=== PATIENT | female | born 1980 | race Native Hawaiian/Other Pacific Islander ===

== ENCOUNTER 2019-11-08 13:55 | Observation (INO) | payer OTHER ==
[2019-11-08] MEDS ORDERED: LACTATED RINGERS 1,000 ML ONE (14:32)
[2019-11-08] MEDS: LACTATED RINGERS 1,000 ML IV SCH ×2 (15:36→19:42)
[2019-11-08] MEDS ORDERED: OXYTOCIN 20 UNIT/1000ML DRIP 0 MILLIUNITS/0 ML BAG IV ONE ×2 (18:02→21:09)
[2019-11-08] MEDS ORDERED: MINERAL OIL 30 ML ORAL LIQD ONE (18:02)
[2019-11-08] MEDS ORDERED: OXYTOCIN DRIP 0 MILLIUNITS/0 ML BAG IV ONE (21:09)
[2019-11-09] MEDS: LACTATED RINGERS 1,000 ML IV SCH (03:13)
[2019-11-09] MEDS ORDERED: ACETAMINOPHEN 325 MG TAB PO PRN (10:21)
--- NOTE | 2019-11-09 10:55 | Ultrasound Report ---
Limited OB Ultrasound Biophysical profile HISTORY: well being. TECHNIQUE: Grayscale and color imaging performed. COMPARISON: None FINDINGS: There is a single viable intrauterine gestation with cephalic presentation. SOFIA is 10 cm. H eart rate is 137 bpm. On biophysical profile, the fetus received a score of 2 out of 2 for breathing movement, movement, po sture/tone, and qualitative SOFIA. Total score was 8 out of 8. IMPRESSION: 1. Single viable intrauterine gestation as above. 2. Normal BPP. Signer Name: Gianfranco Kwong MD Signed: 11/09/2019 10:50 AM Workstation Name: [id number]
[2019-11-09 12:37] VITALS: BP 109/62
== END 2019-11-09 12:55 | disposition home or self-care (01) ==
LOC: TRG 13:55 → LD 14:01 → INTOOBSV 14:01
PROVIDERS: ADMIT Obstetrics & Gynecology; ATTEND Obstetrics & Gynecology
DX: O09.523 Supervision of elderly multigravida, third trimester (principal); O42.913 Preterm premature rupture of membranes, unspecified as to length of time between rupture and onset of labor, third trimester; O28.8 Other abnormal findings on antenatal screening of mother; O09.293 Supervision of pregnancy with other poor reproductive or obstetric history, third trimester; Z3A.34 34 weeks gestation of pregnancy
CPT/HCPCS: 76815; 76819; G0378; J7120; J2590